=== PATIENT | male | born 1995 | race Caucasian/White ===

== ENCOUNTER 2021-01-12 07:54 | Outpatient (CLI) | payer OTHER, SELFPAY ==
--- NOTE | ~2021-01-12 | US_ITS ---
US abdomen limited INDICATION: Elevated liver enzymes PROCEDURE: Realtime right upper abdominal ultrasound. COMPARISON: No prior studies for comparison. FINDINGS: The pancreas is normal without focal mass or pancreatic ductal dilation. Liver echotexture is increased, consistent with fatty infiltration. There is normal directional flow in the portal ve in. The gallbladder is normal without stones, gallbladder wall thickening or pericholecystic fluid. Comm on bile duct measures 5 mm. No sonographic Larson's sign. IMPRESSION: 1: Hepatic steatosis. Reviewed, dictated and finalized at location A. OW GAUGE BRAKEMAN IMPRESSION: 1: Hepatic steatosis.
== END 2021-01-12 07:55 ==
PROVIDERS: Visit Provider Internal Medicine
DX: R74.8 Abnormal levels of other serum enzymes (principal)
CPT/HCPCS: 76705

== ENCOUNTER 2023-08-19 22:04 | Emergency (ER) | payer BC, SELFPAY ==
--- NOTE | ~2023-08-19 | US_ITS ---
EXAMINATION: US scrotum doppler DATE: 08/19/2023 23:42 INDICATION: testicular pain/ R/O TORSION . TECHNIQUE: Grayscale and Doppler ultrasound images of the testes were obtained. COMPARISON: CT abdomen pelvis, same date. FINDINGS: The right testis measures 4.6 x 2.4 x 3.8 cm. The left testis measures 5.1 x 2.6 x 2.8 cm. No testicular mass. There is normal vascular flow to both testes. The right epididymis is normal with normal vascular flow. Small left epididymal head cyst. The left epididymis is otherwise normal with normal vascular flow. There is no varicocele. Small bilateral hydroceles. Echogenic tissue superior t o the testicles, representing small bilateral fat-containing inguinal hernias that did not change pos ition with the Valsalva maneuver. IMPRESSION: Small bilateral fat-containing inguinal hernias. Small bilateral hydroceles. Otherwise normal scrotal ultrasound findings. Reviewed, dictated and finalized at location K. IMPRESSION: Small bilateral fat-containing inguinal hernias. Small bilateral hydroceles. Ot herwise normal scrotal ultrasound findings.
--- NOTE | ~2023-08-19 | CT_ITS ---
EXAMINATION: CT abdomen pelvis wo con DATE: 08/19/2023 22:58 INDICATION: left flank/abdominal pain eval for stone TECHNIQUE: Computed tomography (CT) of the abdomen and pelvis was performed without intravenous contr ast. Automated exposure control and iterative reconstruction technique were employed. The dose-length product was 1832.77 mGy-cm. COMPARISON: None. FINDINGS: Lower thorax: Unremarkable Liver: Normal. Biliary/Gallbladder: Gallbladder is normal. No bile duct dilation. Pancreas: No mass or duct dilation. Spleen: Normal. Adrenals:No mass. Kidneys: 8 mm stone at the left UPJ. Mild left pelviectasis and caliectasis. Mild left perinephric st randing. Punctate nonobstructing left midpole calcification. Normal right kidney. GI tract: No small or large bowel dilation. Normal appendix. Diverticulosis without diverticulitis. Mesentery/Peritoneum: No ascites, mass, or free air. Retroperitoneum: No mass. Pelvis: Pelvic organs are within normal limits. Soft Tissues: Soft tissues and body wall unremarkable. Bones: No acute osseous finding. IMPRESSION: 8 mm left UPJ stone causing mild obstructive uropathy. Reviewed, dictated and finalized at location K.
[2023-08-19 22:05] VITALS: BP 159/86; PULSE 77; RESP 24; TEMP 36.4; O2SAT 100
[2023-08-19] MEDS: MORPHINE SULFATE (*CRX) 4 MG/ML INJ IV PUSH (22:49)
[2023-08-19] MEDS: ONDANSETRON INJ 4 MG/2 ML VIAL IV PUSH (22:49)
[2023-08-19] MEDS: SODIUM CHLORIDE 0.9% IV 1,000 ML 999 ML IV CONT (22:51)
[2023-08-19 22:57] LABS: Basophils Percent Auto 0.3 % (0.2-1.2); Eosinophils Absolute Auto 0.1 K/mm3 (0-0.3); Eosinophils Percent Auto 0.8 % (0-4.4); Hematocrit 44.3 % (42.0-52.0); Immature Granulocyte Absolute 0.03 K/mm3 (0.00-0.031); Immature Granulocyte Percent A 0.3 % (0-0.5); Lymphocytes Absolute Auto 1.59 K/mm3 (0.9-3.2); Mean Corpuscular HGB Conc 33.9 g/dl (32-36); Mean Corpuscular Hemoglobin 28.8 pg (26-34); Mean Platelet Volume 9.4 fl (7.4-10.4); Monocytes Absolute Auto 0.5 K/mm3 (0.1-0.6); Neutrophils Absolute Auto 8.3 K/mm3 (1.3-6.7); Neutrophils Percent Auto 78.6 % (45.5-73.1); Platelet Count Result 260 k/mm3 (150-375); Red Blood Count 5.21 M/mm3 (4.6-6.20); Red Cell Distribution Width 13.2 % (11.5-14.5); White Blood Count 10.6 K/mm3 (4.5-10.0)
[2023-08-19 23:07] LABS: Alanine Aminotransferase 73 U/L (6-50); Albumin Level 4.6 g/dL (3.5-5.1); Alkaline Phosphatase 67 U/L (38-126); Anion Gap 10 mmol/L (4-12); Aspartate Amino Transferase 35 U/L (17-59); Bilirubin,Total 0.9 mg/dL (0.2-1.3); Blood Urea Nitrogen 15 mg/dL (9-20); Calcium 9.3 mg/dL (8.4-10.2); Carbon Dioxide 27 mmol/L (22-30); Chloride 105 mmol/L (98-107); Estimated CRCL calculation 150 ml/min; Estimated Glomerular Filt Rate > 60; Glucose 164 mg/dL (65-110); Lipase 34 U/L (23-300); Potassium 3.6 mmol/L (3.4-5.0); Sodium 142 mmol/L (137-145)
--- NOTE | 2023-08-20 00:05 | ED.GENADULT ---
HPI - General Adult General Chief complaint: Abdominal Pain Stated complaint: abd pain Time Seen by Provider: 08/19/23 22:30 History of Present Illness HPI narrative: patient is a 28-year-old gentleman who presents emergency department with chief complaint of left lower quadrant abdominal pain. The patient reports the pain radiates to his left testicle reports that he is not having any penile discharge denies urinary symptoms. Patient reports that a month ago he had some similar discomfort but it was not as bad patient denies fever denies chills Related Data Allergies Allergy/AdvReac Type Severity Reaction Status Date / Time No Known Drug Allergies Allergy Other Verified 08/19/23 22:12 Review of Systems Review of Systems: A 10 system review of systems was completed on the patient and is negative except for what is stated in the HPI. Nursing and ancillary documentation was reviewed. Exam Narrative: GENERAL: Well-appearing, well-nourished, and in no acute distress. HEAD: Normocephalic, atraumatic. EYES: PERRLA and EOMI. ENT: Nares clear, no rhinorrhea or epistaxis. Mucous membranes moist. NECK: Supple. CHEST: Clear to auscultation. No respiratory distress. HEART: Regular rate and rhythm. No murmur heard. Normal peripheral pulses. ABDOMEN: Soft, nontender, nondistended, normal active bowel sounds. EXTREMITIES: Normal range of motion. No edema. SKIN: Warm, dry, no rash. NEURO: No focal deficits. Alert and oriented x3. PSYCH: Normal mood and affect. Course Vital Signs Vital signs: Vital Signs Temperature 36.4 C 08/19/23 22:05 Pulse Rate 77 08/19/23 22:05 Respiratory Rate 24 H 08/19/23 22:05 Blood Pressure 159/86 H 08/19/23 22:05 Pulse Oximetry 100 08/19/23 22:05 Oxygen Delivery Room Air 08/19/23 22:05 Temperature 36.4 C 08/19/23 22:05 Pulse Rate 77 08/19/23 22:05 Respiratory Rate 24 H 08/19/23 22:05 Blood Pressure 159/86 H 08/19/23 22:05 Pulse Oximetry 100 08/19/23 22:05 Oxygen Delivery Room Air 08/19/23 22:05 Medical Decision Making MDM Narrative Medical decision making narrative: differential diagnosis includes ureterolithiasis, testicular torsion, UTI, pyelonephritis, hernia laboratory studies were obtained on the patient showed a white count of 10.6 electrolytes showed a creatinine is 0.9 bilirubin was normal at 0.9 lipase was normal scrotal ultrasound showed no evidence of testicular torsion CT scan of the abdomen pelvis showed a 8 mm stone at the UPJ on the left patient's pain is feeling much better at this time Vital Signs Vital Signs: Vital Signs Temperature 36.4 C 08/19/23 22:05 Pulse Rate 77 08/19/23 22:05 Respiratory Rate 24 H 08/19/23 22:05 Blood Pressure 159/86 H 08/19/23 22:05 Pulse Oximetry 100 08/19/23 22:05 Oxygen Delivery Room Air 08/19/23 22:05 Temperature 36.4 C 08/19/23 22:05 Pulse Rate 77 08/19/23 22:05 Respiratory Rate 24 H 08/19/23 22:05 Blood Pressure 159/86 H 08/19/23 22:05 Pulse Oximetry 100 08/19/23 22:05 Oxygen Delivery Room Air 08/19/23 22:05 Lab Data 08/19/23 22:49 08/19/23 22:49 Labs: Lab Results 08/19/23 08/20/23 Range/Units 22:49 00:01 WBC 10.6 H (4.5-10.0) K/mm3 RBC 5.21 (4.6-6.20) M/mm3 Hgb 15.0 (14.0-18.0) g/dL Hct 44.3 (42.0-52.0) % MCV 85.0 (80-100) fl MCH 28.8 (26-34) pg MCHC 33.9 (32-36) g/dl RDW 13.2 (11.5-14.5) % Plt Count 260 (150-375) k/mm3 MPV 9.4 (7.4-10.4) fl Immature Gran % (Auto) 0.3 (0-0.5) % Neut % (Auto) 78.6 H (45.5-73.1) % Lymph % (Auto) 15.0 L (18.3-44.2) % Pierce % (Auto) 5.0 (2.6-8.5) % Eos % (Auto) 0.8 (0-4.4) % Baso % (Auto) 0.3 (0.2-1.2) % Lymph # (Auto) 1.59 (0.9-3.2) K/mm3 Pierce # (Auto) 0.5 (0.1-0.6) K/mm3 Eos # (Auto) 0.1 (0-0.3) K/mm3 Baso # (Auto) 0.0 (0.0-0.1) K/mm3 Abs Immat Gran (auto) 0.03 (0.00-0.
[2023-08-20 00:09] LABS: Appearance Urine Clear (Clear); Bacteria Urine None Seen /hpf; Bilirubin Urine Negative (Negative); Blood Urine 3+ (Negative); Color Urine Yellow (Yellow); Glucose Urine UA Negative (Negative); Ketones Urine Negative (Negative); Leukocyte Esterase Ur Negative LEU/UL (Negative); Nitrate Urine Negative (Negative); Non Pathogenic Casts 0-2; Protein Urine Negative (Negative); Specific Grav Ur 1.015 (1.001-1.035); Squamous Epithelial Cell Urine None Seen /hpf (Few); Urobilinogen Urine 0.2 mg/dL (<2.0); WBC Urine 0-5 /hpf (0-3); pH Urine 5.5 (5.0-9.0)
[2023-08-20 00:27] LABS: Add Urine Microscopic? YES
[2023-08-20] MEDS: oxyCODONE/ACETAMINOPHEN (*CRX) 5-325 MG TABLET 1 TABLET PO (01:08)
[2023-08-20] MEDS: TAMSULOSIN HCL 0.4 MG CAPSULE PO (01:08)
[2023-08-20 01:22] VITALS: BP 146/86; PULSE 72; RESP 16; O2SAT 98
[2023-08-20 01:35] LABS: Chlamydia trachomatis NOT DETECTED (NOT DETECTE); Neisseria gonorrhoeae PCR NOT DETECTED (NOT DETECTE)
== END 2023-08-20 01:26 | disposition home or self-care (01) ==
PROVIDERS: Emergency Provider Emergency Medicine
DX: N13.9 Obstructive and reflux uropathy, unspecified (principal); N20.1 Calculus of ureter; K40.20 Bilateral inguinal hernia, without obstruction or gangrene, not specified as recurrent; N43.3 Hydrocele, unspecified
CPT/HCPCS: 36415; 74176; 76870; 80053; 81001; 83690; 85025; 87491; 87591; 93976; 96361; 96374; 96375; 99284; A9270; J2270; J2405; J7030